=== PATIENT | female | born 1975 | race Caucasian/White ===

== ENCOUNTER → 2018-05-05 | Outpatient (CLI) | payer OTHER ==
[~2018-05-05] VITALS: Ht 170.2 cm; Wt 85.3 kg
[~2018-05-05] MED LIST: NAPROSYN500 MG PO; TRAMADOL 50 MG50 MG PO; XANAX1 MG PO
--- NOTE | ~2018-05-05 | HPC ---
[facility] [place] [address] PAIN MANAGEMENT CONSULTATION Name: JUANJOSE WALL Room #: REG [facility] Nick#: [id number] Admission: 05/05/18 Attend Phys: Peter Zacarias DO Discharge: Date of : 75 Report #: [id number] THIS REPORT FOR: //name// CC: [facility] physician/PCP Moe Zacarias DATE OF SERVICE: 05/05/2018 The patient is a very pleasant 42-year-old female seen in consultation at the request of Dr. Amado for evaluation of axial back pain. The patient had prior had lumbar radicular symptoms well controlled with epidural injection about 3 years ago, primarily left sciatic distribution. She notes the pain has become problematic again with primarily axial back pain exacerbated with twisting, bending and leaning forward. She denies specific antecedent trauma and overuse. She notes anti-inflammatory medications and heat have afforded some relief. Pain is significantly exacerbated by any and all movement. She describes constant, stabbing pain. She rates it 9-10 on a VAS. Symptoms have been present for greater than 6 weeks and has failed conservative therapy. The patient apparently was having a cervical biopsy at Dr. Amado's office with acute exacerbation of aforementioned low back pain. Fortunately, the patient denies any myelopathic symptoms, no issues with lower extremity weakness, loss of proprioception or bowel or bladder continence changes. REVIEW OF SYSTEMS: Complete review of systems was attached to the chart and gone over with the patient. She is . She does smoke. She has for 20 years, down to half pack a day. She was counseled regarding nicotine habituation, chronic use and axial back pain. She drinks alcohol socially. History of thoracic aortic aneurysm, which is being followed with "watchful waiting." History of some chronic anxiety, takes alprazolam 0.5 mg p.r.n., averaging about 1 a day. Has the aforementioned history of left sciatica. A recent abnormal Pap prompting the cervical biopsy. She has had 4 C-sections in the past, 1997, 1999, 2002, 2005. Tragically, her first child of SIDS. She has 3 young adult children. She has also had a left knee ACL repair in 2014. The patient's had owned [place]. 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 She has continued to work despite pain. Pain impact score is fairly high averaging 35/50. PHYSICAL EXAMINATION: Reveals a 5-foot 7-inch, 188-pound female, BMI is 29.4 kilograms per meter squared. Blood pressure is 104/72, pulse 81, respirations 14. Cranial 2-12 are grossly intact. Pupils equal, react to light and accommodation. Extraocular muscles are intact. There is no nystagmus. Lateral gaze deviation. Cervical range of motion is full. Thyroid is unremarkable. Upper extremity strength is preserved. Heart is regular in rate and rhythm without murmur. Lungs are clear to auscultation. Aware of her thoracic aneurysm, I can hear no murmurs. Abdomen is benign. Rises from chair using armrest. Has diffuse tenderness across the low back. Markedly antalgic gait. Pain is exacerbated with any and all movement. Lumbar flexion is limited to 45 degrees. Rotation and sidebending exacerbate pain. She is very tender from about L4 down, exquisitely tender over the SI joints. Lower extremity strength is preserved at 4/5. Patellar and Achilles reflexes are preserved. Straight leg raising negative. Grossly positive Danyelle test, Gaenslen's and pelvic distraction bilaterally. DIAGNOSTIC STUDIES: There are no recent diagnostic studies available for evaluation at this time. ASSESSMENT: Symptomatic sacroiliac joint dysfunction by clinical exam and history, lumbosacral spondylosis without myelopathy. RECOMMENDATIONS: I referred the patient for core stabilization and PT, Naprosyn 500 mg b.i.d., tramadol 50 mg q.4h. as needed for pain. We will seek authorization for bilateral SI joint injections under fluoroscopy. Discharged in good and stable condition. <ELECTRONICALLY SIGNED> By: Peter Zacarias DO 05/06/18 0727 [id number] Peter Zacarias DO /nt
[2018-05-05 09:30] VITALS: BP 104/72
== END ==
LOC: PAIN 09:13
DX: M54.16 Radiculopathy, lumbar region (principal); M47.897 Other spondylosis, lumbosacral region

== ENCOUNTER → 2018-05-12 | Outpatient (CLI) | payer OTHER ==
[~2018-05-12] VITALS: Ht 170.2 cm; Wt 84.2 kg
--- NOTE | ~2018-05-12 | HPC ---
[facility] [place] [address] PAIN MANAGEMENT CONSULTATION Name: MAEJUANJOSE M Room #: REG [facility]#: [id number] Admission: 05/12/18 Attend Phys: Peter Zaacrias DO Discharge: Date of : 75 Report #: [id number] THIS REPORT FOR: //name// CC: [facility] physician/PCP Peter Zacarias The patient is a very pleasant 42-year-old female, prior seen in consultation on 05/05/2018, diagnosed with symptomatic SI-mediated pain, lumbosacral spondylosis without myelopathy. We sought authorization for SI joint injection under fluoroscopy. I did write for physical therapy. She has lined this up, but has not started yet. ASSESSMENT: 1. Symptomatic SI-mediated pain. 2. Lumbosacral spondylosis without myelopathy. PHYSICAL EXAMINATION: Unchanged from presentation. PROCEDURE NOTE: Bilateral SI joint injection under flouroscopy. After written and informed consent was obtained including risk of infection, nerve trauma, increased pain and weakness, the patient wishes to proceed. The patient was taken to the fluoroscopy suite, placed in the prone position. The sacroiliac joint was visualized using the C-arm, turned in an oblique fashion to align the joint. The skin overlying the area was cleansed with ChloraPrep. Skin wheal with Xylocaine was raised. A 22 gauge spinal needle was inserted into the inferior aspect of the joint. A low volume extension tubing was then attached to the needle after the stylet was removed. Negative aspiration was accomplished. A 1 mL of Omnipaque was injected which showed spread within the SI joint. 40 mg triamcinolone plus 2 mL of 0.5% preservative-free bupivacaine was injected into the joint. Needle was removed. Attention was then turned to the contralateral joint which was treated in an identical fashion. After both needles were removed the prep was washed off. Two Band-Aids were applied over the puncture sites. The patient was allowed to ambulate to the recovery room, monitored for an appropriate period of time, discharged in good and stable condition. Fluoroscopy time was under 15 seconds. <ELECTRONICALLY SIGNED> By: Peter Zacarias DO 05/12/18 1242 [id number] Peter Zacarias DO /nt
[2018-05-12 10:23] VITALS: BP 118/67
== END | disposition home or self-care (01) ==
LOC: PAIN 06:52
DX: M53.3 Sacrococcygeal disorders, not elsewhere classified (principal); M47.817 Spondylosis without myelopathy or radiculopathy, lumbosacral region; F17.210 Nicotine dependence, cigarettes, uncomplicated; Z88.8 Allergy status to other drugs, medicaments and biological substances; Z79.891 Long term (current) use of opiate analgesic; Z79.899 Other long term (current) drug therapy; Z98.890 Other specified postprocedural states